=== PATIENT | male | born 1950 | race Native Hawaiian/Other Pacific Islander ===

== ENCOUNTER 2018-12-20 18:16 | Emergency (ER) | payer OTHER ==
[~2018-12-20] VITALS: Ht 170.2 cm; Wt 108.9 kg
[~2018-12-20 18:16] MED LIST: FURO20TA67 PO; LEVO175T PO; POT CHLORIDE10 MEQ PO; PRAVACHOL20 MG PO; TAMS0.4C PO; TRIGLIDE160 MG PO
[2018-12-20 19:36] LABS: PLATELET COUNT 215 K/uL (142-355)
[2018-12-20 19:55] LABS: POTASSIUM 4.1 mmol/L (3.6-5.2)
[2018-12-20 21:27] VITALS: BP 152/74; TEMP 98.1
== END 2018-12-20 21:31 | disposition home or self-care (01) ==
LOC: ED 18:16
PROVIDERS: Family Medicine
DX: E03.8 Other specified hypothyroidism (principal); H02.822 Cysts of right lower eyelid
CPT/HCPCS: 36415; 80053; 84436; 84443; 85027; 99283

== ENCOUNTER 2019-10-07 15:45 | Emergency (ER) | payer OTHER ==
[~2019-10-07] VITALS: Ht 170.2 cm; Wt 112.5 kg
[2019-10-07 15:55] VITALS: TEMP 98.6
[2019-10-07 16:24] VITALS: BP 133/86
== END 2019-10-07 16:25 | disposition home or self-care (01) ==
LOC: ED 15:45
DX: L72.8 Other follicular cysts of the skin and subcutaneous tissue (principal)
CPT/HCPCS: 99281